=== PATIENT | female | born 1965 | race Caucasian/White ===

== ENCOUNTER 2016-06-16 21:30 | Emergency (ER) | payer OTHER, MEDICAID ==
[~2016-06-16] VITALS: Ht 177.8 cm; Wt 94.6 kg
[~2016-06-16 21:30] MED LIST: DULO1CAP2 PO; DULO1CAP3 PO; VARE.5 PO; VARE1PAK5 PO
[2016-06-16 21:41] VITALS: BP 143/83; PULSE 94; RESP 19; TEMP 98.2; O2SAT 98
[2016-06-16] MEDS ORDERED: CYMB60CA PO (21:55)
[2016-06-16] MEDS ORDERED: PRED50 PO (22:11)
[2016-06-16] MEDS ORDERED: CYCL1TAB29 PO (22:11)
[2016-06-16] MEDS ORDERED: IBUP800T23 PO (22:11)
[2016-06-16] MEDS ORDERED: TRAM50TA PO (22:12)
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
[2016-09-27] MEDS ORDERED: CYMB60CA PO (14:34)
== END 2016-06-16 22:25 | disposition home or self-care (01) ==
LOC: PHEFT 21:30
DX: M62.830 Muscle spasm of back (principal); M62.838 Other muscle spasm; S06.0X0A Concussion without loss of consciousness, initial encounter; R51 Headache; V43.52XA Car driver injured in collision with other type car in traffic accident, initial encounter
CPT/HCPCS: 99283